=== PATIENT | female | born 1995 | race Caucasian/White ===

== ENCOUNTER 2017-03-02 18:14 | Emergency (ER) | payer MEDICAID, OTHER ==
[~2017-03-02] VITALS: Ht 162.6 cm; Wt 78.0 kg
[2017-03-02] MEDS ORDERED: ALBUTEROL (0.083%) 2.5MG/3ML NEB HHN STA (20:33)
[2017-03-02] MEDS ORDERED: ACETAMINOPHEN 325MG TABLET PO STA (20:33)
[2017-03-02] MEDS ORDERED: IPRATROPIUM BROMIDE (0.02%) 0.5MG/2.5ML NEB HHN STA (20:33)
[2017-03-02] MEDS ORDERED: PREDNISONE 20MG TABLET PO STA (20:33)
[2017-03-02] MEDS ORDERED: AZITHROMYCIN 500 MG TABLET PO STA (20:33)
[2017-03-02 21:15] LABS: *AMPHETAMINES SCREEN URINE NEGATIVE (NEGATIVE); *BARBITURATES SCREEN URINE NEGATIVE (NEGATIVE); *BENZODIAZEPINES SCREEN URINE NEGATIVE (NEGATIVE); *COCAINE SCREEN URINE NEGATIVE (NEGATIVE); CANNABINOID URINE SCREEN NEGATIVE (NEGATIVE); METHADONE URINE SCREEN NEGATIVE (NEGATIVE); PHENCYCLIDINE URINE SCREEN NEGATIVE (NEGATIVE)
[2017-03-02 21:18] LABS: OPIATES URINE SCREEN PRESUMTIVE POSITIVE (NEGATIVE)
[2017-03-02] MEDS ORDERED: SODIUM CHLORIDE 0.9% 1,000 ML IV ONE (21:34)
[2017-03-02 23:16] VITALS: BP 109/73
== END 2017-03-02 23:23 | disposition home or self-care (01) ==
LOC: ER 20:22
DX: B34.9 Viral infection, unspecified (principal)
CPT/HCPCS: 71045; 80305; 81025; 87804; 94640; 96360; 96361; 99285; J7030; J7512; J7611

== ENCOUNTER 2021-10-07 08:50 | Emergency (ER) | payer MEDICAID, OTHER ==
[~2021-10-07] VITALS: Ht 172.7 cm; Wt 76.0 kg
[2021-10-07] MEDS ORDERED: FAMOTIDINE 20MG/2ML VIAL IV STA (08:58)
[2021-10-07] MEDS ORDERED: MAGNESIUM/ALUMINUM HYDROXIDE/SIMETHICONE 30ML UDC PO STA (08:58)
[2021-10-07] MEDS ORDERED: ONDANSETRON HCL 4MG/2ML INJ IV STA (08:58)
[2021-10-07] MEDS ORDERED: SODIUM CHLORIDE 0.9% 1,000 ML IV ONE (09:00)
[2021-10-07] MEDS ORDERED: MORPHINE SULFATE 4 MG/ML CPJ (NOT FOR IM USE) IV ONE (09:30)
[2021-10-07 09:45] LABS: BASOPHILS % 0.3 % (0.0-2.0); EOSINOPHILS % 2.2 % (0.0-5.0); HEMATOCRIT. 42.6 % (36.0-48.0); HEMOGLOBIN. 14.2 g/dL (12.0-16.0); LYMPHOCYTES % 22.4 % (20.0-50.0); MEAN CORPUSCULAR HEMOGLOBIN 27.8 pg (28.0-32.0); MEAN CORPUSCULAR VOLUME 83.6 fL (81.0-99.0); MEAN PLATELET VOLUME 9.5 fl (7.4-10.4); MONOCYTES % 6.9 % (2.0-8.0); NEUTROPHILS % 68.2 % (40.0-76.0); PLATELET 400 x1000/uL (130-400); RED CELL DISTRIBUTION WIDTH 14.2 % (11.6-14.6)
[2021-10-07 09:55] LABS: CHLORIDE 107 mEq/L (98-107)
[2021-10-07 09:59] LABS: PROTHROMBIN TIME 10.3 sec (9.6-11.0)
[2021-10-07 10:09] LABS: HCG SCREEN NEGATIVE
[2021-10-07] MEDS ORDERED: KETOROLAC 30MG/ML VIAL IV ONE (11:15)
[2021-10-07] MEDS ORDERED: MAGNESIUM/ALUMINUM HYDROXIDE/SIMETHICONE 30ML UDC PO NR (11:19)
[2021-10-07] MEDS ORDERED: MORPHINE SULFATE 4 MG/ML CPJ (NOT FOR IM USE) IV NR (11:19)
[2021-10-07] MEDS ORDERED: ONDA4TAB50 MT (13:26)
[2021-10-07] MEDS ORDERED: FAMO20TA8 MT (13:26)
[2021-10-07] MEDS ORDERED: MAG-55 MT (13:26)
[2021-10-07 13:38] VITALS: BP 104/54
== END 2021-10-07 13:41 | disposition home or self-care (01) ==
LOC: ER 08:50
DX: K29.70 Gastritis, unspecified, without bleeding (principal)
CPT/HCPCS: 36415; 74176; 76705; 80053; 83690; 84703; 85025; 85610; 96361; 96374; 96375; 99285; J1885; J2270; J2405; J3490; J7030